=== PATIENT | male | born 1980 | race Caucasian/White ===

== ENCOUNTER 2025-01-03 05:49 | Emergency (ER) | payer OTHER, SELFPAY ==
[2025-01-03] VITALS (7 sets, daily range): BP systolic 177–196; BP diastolic 105–120; PULSE 84–95; RESP 16–24; TEMP 36.7–36.8; O2SAT 96–100
--- NOTE | ~2025-01-03 | CT_ITS ---
Non-contrast Head CT History: Hypertensive emergency Technique: Axial non-contrast imaging of the brain was performed. Dose reduction technique was used on this scan by utilizing automated exposure control and iterative reconstruction technique. The dose -length product (DLP) was 605.33 mGy-cm. Findings: There is no evidence of intracranial hemorrhage, mass lesion, or acute infarct. Brain par enchyma appears normal. The ventricles and subarachnoid spaces are normal in size. The calvarium ap pears normal. The visualized paranasal sinuses and mastoid air cells are clear. Impression: No significant abnormality seen. Reviewed, dictated and finalized at location . Impression: No significant abnormality seen.
--- OUTSIDE RECORDS SUMMARY | 2025-01-03 06:33 | XMS_ITS | Clinical Summary ---
Author Organization Address [address] [place] [id number] Care Team Providers Care Software Engineer Mobile Name Role Phone Unavailable Primary Care Provider Unavailabl e Immunizations Immunization Administration Dates Next Due Covid-19, Mrna, Lnp-s, Pf, 30 Mcg/0.3 Ml Dose (P stuartzer) 05/28/2021 Social History Tobacco Use Types Packs/Day Years Used Date Smoking Tobacco: Never Assessed Sex and Gender Information Value Date Recorded Sex Assigned at Not on file Legal Sex Male 3:36 PM [employer] Gender Identity Not on file Sexual Orientation Not on file Plan of Treatment Health Maintenance Due Date Last Done Comments Hepatitis C Virus (HCV) Screening 1981 TdaP Immunization 1981 Human Papillomavirus (HPV) Immunization (1 - Male 3-dose series) 1996 Hepatitis B Immunization (1 of 3 - 19+ 3-dose series) 2000 SARS-COV-2 Immunization ( - season) 2024 05/28/2021, 09/16/2020, 08/22/2020 Influenza Immunization (#1) 2025 Respiratory Syncytial Virus (RSV) Immunization (Adult) (1 - 1-dose 75+ series) 2056 Meningococcal Immunization (ACWY) Aged Out No longer eligible b ased on patient's age to complete this topic Pneumococcal Immunization Combined Aged Out No longer eligible b ased on patient's age to complete this topic Rotavirus Immunization Aged Out No lo nger eligible based on patient's age to complete this topic
--- NOTE | 2025-01-03 06:46 | ED.GENADULT ---
HPI - General Adult General Chief complaint: Unspecified <Kami Jaimes MD - Last Filed: 01/03/25 07:05> Stated complaint: weakness/droopiness on left side since Friday <Kami Jaimes MD - Last Filed: 01/03/25 07:05> Time Seen by Provider: 01/03/25 06:04 <Kami Jaimes MD - Last Filed: 01/03/25 07:05> History of Present Illness HPI narrative: Patient is a 44-year-old male who presents to the emergency department complaining of left-sided facial droop. Patient states that this started 2 days ago. Patient tried to wait it out but symptoms did not improve. He is denying any other symptoms including any focal weakness, numbness, tingling to his face or any other parts of his body, any vision changes, any recent illness, fevers or chills, dizziness, lightheadedness, gait instability. Patient admits that he does not follow-up with And has not seen a physician in many years. His blood pressure was noted to be elevated in triage and when asked regarding any history of blood hypertension he states that he has not seen primary care physician in many many years. <Kami Jaimes MD - Last Filed: 01/03/25 07:05> Related Data Allergies/adverse reactions: Allergies Allergy/AdvReac Type Severity Reaction Status Date / Time No Known Allergies Allergy Verified 01/03/25 08:08 <Kami Jaimes MD - Last Filed: 01/03/25 07:05> Review of Systems Review of Systems: All systems are reviewed and are negative unless stated otherwise in the HPI. <Kami Jaimes MD - Last Filed: 01/03/25 07:05> Exam Narrative: General: Alert, awake, afebrile, in no acute distress. HEENT: PERRL, no rhinorrhea, no post nasal drip, oropharynx clear. Neck: Trachea midline, no JVD, no lymphadenopathy. Cardiovascular: Regular rate and rhythm, no murmurs, rubs or gallops, no peripheral edema. Respiratory: Clear to auscultation bilaterally, no tachypnea, no wheezing, no rhonchi, no rubs, no respiratory distress. Abdomen: Soft, nontender, nondistended, no rebound, no guarding, no peritoneal signs. Musculoskeletal: No joint swelling or deformity, normal muscle tone. Skin: No rashes or petechia, no signs of infection. Psychiatric: Alert and oriented, normal behavior and judgment for situation. Neurological: Alert and oriented to person, place, and time. Left-sided facial droop not sparing the forehead, 5/5 motor strength in the bilateral upper and lower extremity, intact and equal sensation in the bilateral upper and lower extremity. Follows all commands. No focal deficits, speech is clear and fluent. Gait is intact and normal. <Kami Jaimes MD - Last Filed: 01/03/25 07:05> Course Reevaluation(s) Reevaluation #1: Signed out to me pending CT. This is unremarkable. Labs within acceptable limits including normal creatinine. I had a long discussion with the patient, will start him on blood pressure medication, no signs or symptoms of end organ dysfunction; no chest pain or shortness of breath, severe headaches, visual disturbance, oliguria, or symptoms of dissection/AAA). Long-term risks of hypertension, especially uncontrolled, were discussed including increased risks of kidney disease, vascular disease, stroke and heart disease. We discussed lifestyle modifications including diet and exercise. I will start patient on amlodipine here and provide script for short course, patient expressed understanding of the instructions and strongly advised to follow-up with PMD for further management. Also discussed starting him on steroids and follow-up to neurology with strict return precautions, as well as eye precautions. He has no pain, rash, or any other signs of viral etiology. Forehead is not spared and patient unable to raise his left eyebrow, therefore very likely peripheral and very unlikely central cause symptoms. All questions answered <Kaet Hawkins MD - Last Filed: 01/03/25 08:16> Vital Signs Vital signs: Vital Signs Temperature 98.2 F 01/03/25 05:51 Pulse Rate 90 01/03/25 05:51 Respiratory Rate 18 01/03/25 05:51 Blood Pressure 190/111 H 01/03/25 05:51 Pulse Oximetry 100 01/03/25 05:51 Oxygen Delivery Room Air 01/03/25 05:51 Temperature 98.1 F 01/03/25 05:59 Pulse Rate 84 07/14/25 06:54 Respiratory Rate 24 H 01/03/25 06:54 Blood Pressure 183/105 H 01/03/25 06:54 Pulse Oximetry 99 01/03/25 06:54 Oxygen Delivery Room Air 01/03/25 05:59 <Kaim Jaimes MD - Last Filed: 01/03/25 07:05> Vital Signs Temperature 98.2 F 01/03/25 05:51 Pulse Rate 90 01/03/25 05:51 Respiratory Rate 18 01/03/25 05:51 Blood Pressure 190/111 H 01/03/25 05:51 Pulse Oximetry 100 01/03/25 05:51 Oxygen Delivery Room Air 01/03/25 05:51 Temperature 98.1 F 01/03/25 05:59 Pulse Rate 84 01/03/25 06:54 Respiratory Rate 24 H 01/03/25 06:54 Blood Pressure 183/105 H 01/03/25 06:54 Pulse Oximetry 99 01/03/25 06:54 Oxygen Delivery Room Air 01/03/25 05:59 <Kate Hawkins MD - Last Filed: 01/03/25 08:16> Medical Decision Making MDM Narrative Medical decision making narrative: The patient was evaluated by myself in the emergency department. History is obtained from patient who is an independent historian and physical exam was performed. External medical records were reviewed at this time. IV was established and pertinent tests were ordered. Patient was started on artificial teardrops, administered 80 mg of p.o. prednisone, and provided with an eye ointment to apply at night and instructed that he will need to tape his left eye shut. Laboratory results were obtained at this time and are currently pending. Imaging studies obtained included CT brain without IV contrast which is currently pending. Differential diagnosis considerations include Downing's palsy versus stroke. Comorbidities impacting this visit include loss of medical follow-up. I have evaluated and discussed social determinants of health with the patient that could potentially impact subsequent diagnosis and treatment plans. Patient was signed out to AM ED physician pending remainder of the workup. <Kami Jaimes MD - Last Filed: 01/03/25 07:05> Vital Signs Vital Signs: Vital Signs Temperature 98.2 F 01/03/25 05:51 Pulse Rate 90 01/03/25 05:51 Respiratory Rate 18 01/03/25 05:51 Blood Pressure 190/111 H 01/03/25 05:51 Pulse Oximetry 100 01/03/25 05:51 Oxygen Delivery Room Air 01/03/25 05:51 Temperature 98.1 F 01/03/25 05:59 Pulse Rate 84 01/03/25 06:54 Respiratory Rate 24 H 01/03/25 06:54 Blood Pressure 183/105 H 01/03/25 06:54 Pulse Oximetry 99 01/03/25 06:54 Oxygen Delivery Room Air 01/03/25 05:59 <Kami Jaimes MD - Last Filed: 01/03/25 07:05> Vital Signs Temperature 98.2 F 01/03/25 05:51 Pulse Rate 90 01/03/25 05:51 Respiratory Rate 18 01/03/25 05:51 Blood Pressure 190/111 H 01/03/25 05:51 Pulse Oximetry 100 01/03/25 05:51 Oxygen Delivery Room Air 01/03/25 05:51 Temperature 98.1 F 01/03/25 05:59 Pulse Rate 84 01/03/25 06:54 Respiratory Rate 24 H 01/03/25 06:54 Blood Pressure 183/105 H 01/03/25 06:54 Pulse Oximetry 99 01/03/25 06:54 Oxygen Delivery Room Air 01/03/25 05:59 <Kate Hawkins MD - Last Filed: 01/03/25 08:16> Lab Data Result diagrams: 01/03/25 06:48 01/03/25 06:48 <Kami Jaimes MD - Last Filed: 01/03/25 07:05> Labs: Lab Results 01/03/25 Range/Units 06:48 WBC 7.4 (4.5-10.0) K/mm3 RBC 5.13 (4.6-6.20) M/mm3 Hgb 14.3 (14.0-18.0) g/dL Hct 42.5 (42.0-52.0) % MCV 82.8 (80-100) fl MCH 27.9 (26-34) pg MCHC 33.6 (32-36) g/dl RDW 12.4 (11.5-14.5) % Plt Count 252 (150-375) k/mm3 MPV 9.5 (7.4-10.4) fl Immature Gran % (Auto) 0.5 (0-0.5) % Neut % (Auto) 56.8 (45.5-73.1) % Lymph % (Auto) 33.6 (18.3-44.2) % [place] % (Auto) 6.1 (2.6-8.5) % Eos % (Auto) 2.0 (0-4.4) % Baso % (Auto) 1.0 (0.2-1.2) % Lymph # (Auto) 2.47 (0.9-3.2) K/mm3 [place] # (Auto) 0.5 (0.1-0.6) K/mm3 Eos # (Auto) 0.2 (0-0.3) K/mm3 Baso # (Auto) 0.1 (0.0-0.1) K/mm3 Abs Immat Gran (auto) 0.04 H (0.00-0.031) K/mm3 Absolute Neuts (auto) 4.2 (1.3-6.7) K/mm3 Absolute Nucleated RBC 0.000 (0.0-0.012) K/mm3 Nucleated RBC % 0.0 (0.0-0.2) % Sodium 137 (137-145) mmol/L Potassium 3.5 (3.4-5.0) mmol/L Chloride 102 (98-107) mmol/L Carbon Dioxide 28 (22-30) mmol/L Anion Gap 7 (4-12) mmol/L BUN 15 (9-20) mg/dL Creatinine 0.95 (0.7-1.3) mg/dL Estim Creat Clear Calc 128 ml/min Estimated GFR > 60 (59 - ) Glucose 136 H (65-110) mg/dL Calcium 9.1 (8.4-10.2) mg/dL Magnesium 2.0 (1.6-2.3) mg/dL Total Bilirubin 0.6 (0.2-1.3) mg/dL AST 31 (17-59) U/L ALT 24 (6-50) U/L Alkaline Phosphatase 57 (38-126) U/L Total Protein 7.2 (6.3-8.2) g/dL Albumin 4.1 (3.5-5.1) g/dL <Kami Jaimes MD - Last Filed: 01/03/25 07:05> Lab Results 01/03/25 Range/Units 06:48 WBC 7.4 (4.5-10.0) K/mm3 RBC 5.13 (4.6-6.20) M/mm3 Hgb 14.3 (14.0-18.0) g/dL Hct 42.5 (42.0-52.0) % MCV 82.8 (80-100) fl MCH 27.9 (26-34) pg MCHC 33.6 (32-36) g/dl RDW 12.4 (11.5-14.5) % Plt Count 252 (150-375) k/mm3 MPV 9.5 (7.4-10.4) fl Immature Gran % (Auto) 0.5 (0-0.5) % Neut % (Auto) 56.8 (45.5-73.1) % Lymph % (Auto) 33.6 (18.3-44.2) % [place] % (Auto) 6.1 (2.6-8.5) % Eos % (Auto) 2.0 (0-4.4) % Baso % (Auto) 1.0 (0.2-1.2) % Lymph # (Auto) 2.47 (0.9-3.2) K/mm3 [place] # (Auto) 0.5 (0.1-0.6) K/mm3 Eos # (Auto) 0.2 (0-0.3) K/mm3 Baso # (Auto) 0.1 (0.0-0.1) K/mm3 Abs Immat Gran (auto) 0.04 H (0.00-0.031) K/mm3 Absolute Neuts (auto) 4.2 (1.3-6.7) K/mm3 Absolute Nucleated RBC 0.000 (0.0-0.012) K/mm3 Nucleated RBC % 0.0 (0.0-0.2) % Sodium 137 (137-145) mmol/L Potassium 3.5 (3.4-5.0) mmol/L Chloride 102 (98-107) mmol/L Carbon Dioxide 28 (22-30) mmol/L Anion Gap 7 (4-12) mmol/L BUN 15 (9-20) mg/dL Creatinine 0.95 (0.7-1.3) mg/dL Estim Creat Clear Calc 128 ml/min Estimated GFR > 60 (59 - ) Glucose 136 H (65-110) mg/dL Calcium 9.1 (8.4-10.2) mg/dL Magnesium 2.0 (1.6-2.3) mg/dL Total Bilirubin 0.6 (0.2-1.3) mg/dL AST 31 (17-59) U/L ALT 24 (6-50) U/L Alkaline Phosphatase 57 (38-126) U/L Total Protein 7.2 (6.3-8.2) g/dL Albumin 4.1 (3.5-5.1) g/dL <Kate Hawkins MD - Last Filed: 01/03/25 08:16> Discharge Plan Discharge Clinical Impression: Left-sided Downing's palsy, Hypertensive urgency <Kami Jaimes MD - Last Filed: 01/03/25 07:05> Patient Disposition: Home <Kami Jaimes MD - Last Filed: 01/03/25 07:05> Condition: Stable <Kami Jaimes MD - Last Filed: 01/03/25 07:05> Instructions: Downing Palsy (ED), Hypertension (ED) <Kami Jaimes MD - Last Filed: 01/03/25 07:05> Additional Instructions: Please follow-up with neurologist and with a primary care doctor. Please start taking the blood pressure medication as prescribed. If you start having any further symptoms, especially any difficulty with speech, vision changes, new numbness or weakness anywhere, chest pain or shortness of breath, or anything concerning, return to the emergency room immediately. Make sure to tape your eye closed at night and use the eye drops frequently to help prevent drying out. <Kami Jaimes MD - Last Filed: 01/03/25 07:05> Patient Language: Grenadian <Kami Jaimes MD - Last Filed: 01/03/25 07:05> Prescriptions: New prednisone 20 mg tablet 80 mg PO DAILY 6 Days Qty: 24 0RF amlodipine 10 mg tablet 10 mg PO DAILY Qty: 30 0RF <Kami Jaimes MD - Last Filed: 01/03/25 07:05> Follow-up/Referrals: Kim Avila MD [Physician] - 2 Days PHYSICIAN,TERMITE RENEWAL INSPECTOR [Primary Care Provider] - Vitaliy Pulliam MD [Physician] - 2 Days <Kami Jaimes MD - Last Filed: 01/03/25 07:05>
[2025-01-03 06:54] LABS: Hematocrit 42.5 % (42.0-52.0); Hemoglobin 14.3 g/dL (14.0-18.0); Immature Granulocyte Percent A 0.5 % (0-0.5); Lymphocytes Absolute Auto 2.47 K/mm3 (0.9-3.2); Mean Corpuscular HGB Conc 33.6 g/dl (32-36); Mean Corpuscular Hemoglobin 27.9 pg (26-34); Mean Corpuscular Volume 82.8 fl (80-100); Nucleated Red Blood Cells Absolute Auto 0.000 K/mm3 (0.0-0.012); Nucleated Red Blood Cells Perc 0.0 % (0.0-0.2); Platelet Count Result 252 k/mm3 (150-375); Red Blood Count 5.13 M/mm3 (4.6-6.20); White Blood Count 7.4 K/mm3 (4.5-10.0)
[2025-01-03 07:13] LABS: Alanine Aminotransferase 24 U/L (6-50); Albumin Level 4.1 g/dL (3.5-5.1); Alkaline Phosphatase 57 U/L (38-126); Anion Gap 7 mmol/L (4-12); Aspartate Amino Transferase 31 U/L (17-59); Bilirubin,Total 0.6 mg/dL (0.2-1.3); Blood Urea Nitrogen 15 mg/dL (9-20); Calcium 9.1 mg/dL (8.4-10.2); Carbon Dioxide 28 mmol/L (22-30); Chloride 102 mmol/L (98-107); Estimated CRCL calculation 128 ml/min; Estimated Glomerular Filt Rate > 60; Glucose 136 mg/dL (65-110); Magnesium 2.0 mg/dL (1.6-2.3); Potassium 3.5 mmol/L (3.4-5.0); Sodium 137 mmol/L (137-145); Total Protein 7.2 g/dL (6.3-8.2)
[2025-01-03] MEDS: MINERAL OIL/WHITE PETROLATUM OINTMENT 1 APPLIC RIGHT EYE (07:14)
[2025-01-03] MEDS: ARTIFICIAL TEARS OPHTH SOLN 15 ML BOTTLE 1 DROP LEFT EYE (07:14)
== END 2025-01-03 08:25 | disposition home or self-care (01) ==
PROVIDERS: Emergency Medicine; Emergency Provider Emergency Medicine
DX: G51.0 Bell's palsy (principal); I16.0 Hypertensive urgency
CPT/HCPCS: 36415; 70450; 80053; 83735; 85025; 99284; A9270; J7512